=== PATIENT | male | born 1985 | race Hispanic/Latino ===

== ENCOUNTER → 2016-12-03 | Outpatient (REF) ==
[~2016-12-03] MED LIST: CYCL10TA PO; MELO15TA4 PO; NORCOTAB PO; SOMA350T PO
--- NOTE | 2016-12-03 13:30 | REP ---
Left knee five views : There is no fracture or dislocation. Mineralization and joint spaces are normal. There are no calcifications or foreign bodies. Impression: Negative left knee . Signed by Anjel Gonzales MD 12/03/2016 01:21 P
== END ==
LOC: M SMT 13:00
PROVIDERS: ATTEND Internal Medicine
DX: Z02.1 Encounter for pre-employment examination (principal)

== ENCOUNTER → 2022-04-15 | Outpatient (CLI) | payer OTHER ==
[~2022-04-15] MED LIST changes: +CYCL-707 PO; -CYCL10TA PO; +HYDR-3715 PO; +MELO15TA28 PO; -MELO15TA4 PO; -NORCOTAB PO
== END ==
LOC: M RAD 09:44
PROVIDERS: ATTEND Internal Medicine
DX: N18.9 Chronic kidney disease, unspecified (principal)

== ENCOUNTER → 2023-01-20 | Outpatient (REF) | payer OTHER | LOC: M LABSMT 11:17 | PROVIDERS: ATTEND Urology | DX: Z30.2 Encounter for sterilization (principal) ==

== ENCOUNTER 2025-05-05 12:50 | Emergency (ER) | payer OTHER ==
[~2025-05-05] VITALS: Ht 185.4 cm; Wt 97.9 kg
[2025-05-05] MEDS ORDERED: PRED10TA2 (12:58)
[2025-05-05] MEDS ORDERED: VALA1TAB5 (12:58)
[2025-05-05] MEDS ORDERED: DOXY-441 (12:58)
[2025-05-05 14:15] VITALS: BP 130/78; TEMP 98.7; O2SAT 98
== END 2025-05-05 14:36 | disposition home or self-care (01) ==
LOC: M ED 12:50
DX: S39.012A Strain of muscle, fascia and tendon of lower back, initial encounter (principal); M51.27 Other intervertebral disc displacement, lumbosacral region; M54.42 Lumbago with sciatica, left side; X58.XXXA Exposure to other specified factors, initial encounter; Y92.9 Unspecified place or not applicable; Y93.89 Activity, other specified; Y99.9 Unspecified external cause status